=== PATIENT | female | born 1980 | race Caucasian/White ===

== ENCOUNTER 2021-08-01 22:24 | Observation (INO) | payer OTHER ==
[2021-08-01 22:42] VITALS: BMI 38.0
[2021-08-01] MEDS ORDERED: ACETAMINOPHEN 1000 MG/100 ML VIAL (NON FORMULARY) IVPB ONE (23:04)
[2021-08-01] MEDS ORDERED: SODIUM CHLORIDE 0.9% 500 ML INFUS.BAG IV ONE (23:04)
[2021-08-01] MEDS ORDERED: ACETAMINOPHEN INJECTION 100 ML IVPB ONE (23:29)
[2021-08-01 23:31] LABS: BASO % 0.8 % (0-2.0); EOS % 0.8 % (0-4.5); HEMATOCRIT 39.4 % (32.4-45.2); HEMOGLOBIN 13.1 GM/dL (10.7-15.3); MCH 26.8 pg (25.7-33.7); MCHC 33.1 g/dl (32.0-36.0); MEAN PLT VOLUME 8.4 fl (7.5-11.1); MONO % 6.1 % (3.8-10.2); NEUT % 67.3 % (42.8-82.8); PLATELET COUNT 269 10^3/uL (134-434); RBC 4.87 M/mm3 (3.60-5.2)
[2021-08-01 23:44] LABS: CHLORIDE 106 mmol/L (98-107); SODIUM 138 mmol/L (136-145)
[2021-08-01 23:45] LABS: CALCIUM 8.8 mg/dL (8.5-10.1)
[2021-08-01 23:46] LABS: ALBUMIN 3.9 g/dl (3.4-5.0); ANION GAP 10 MMOL/L (8-16); BLOOD UREA NITROGEN 9.6 mg/dL (7-18); CO2 22 mmol/L (21-32); GLUCOSE,RANDOM 125 mg/dL (74-106)
[2021-08-01 23:49] LABS: CREATININE 0.8 mg/dL (0.55-1.3); SGOT/AST 16 U/L (15-37); SGPT/ALT 27 U/L (13-61)
[2021-08-01 23:50] LABS: BILIRUBIN,TOTAL 0.3 mg/dL (0.2-1); TOT PROT 7.4 g/dl (6.4-8.2)
[2021-08-01 23:52] LABS: ALK PHOS 36 U/L (45-117)
[2021-08-02] MEDS ORDERED: ASPIRIN 81 MG CHEWABLE TABLETS PO ONE (00:12)
[2021-08-02] MEDS ORDERED: ASPIRIN 81 MG CHEWABLE TABLETS ONE ×2 (00:20→00:45)
[2021-08-02 07:16] LABS: BASO % 0.5 % (0-2.0); EOS % 0.4 % (0-4.5); HEMATOCRIT 38.4 % (32.4-45.2); HEMOGLOBIN 12.6 GM/dL (10.7-15.3); LYMPH % 29.1 % (8-40); MCHC 32.9 g/dl (32.0-36.0); MEAN CELL VOLUME 82.1 fl (80-96); MEAN PLT VOLUME 9.2 fl (7.5-11.1); MONO % 5.3 % (3.8-10.2); NEUT % 64.7 % (42.8-82.8); PLATELET COUNT 248 10^3/uL (134-434); RBC 4.68 M/mm3 (3.60-5.2); RDW 13.5 % (11.6-15.6); WHITE BLOOD COUNT 9.8 K/mm3 (4.0-10.0)
[2021-08-02 07:27] LABS: CHLORIDE 109 mmol/L (98-107); SODIUM 138 mmol/L (136-145)
[2021-08-02 07:30] LABS: CALCIUM 8.8 mg/dL (8.5-10.1)
[2021-08-02 07:31] LABS: ANION GAP 5 MMOL/L (8-16); CO2 24 mmol/L (21-32)
[2021-08-02 07:32] LABS: GLUCOSE,RANDOM 86 mg/dL (74-106)
[2021-08-02 07:34] LABS: CREATININE 0.7 mg/dL (0.55-1.3)
[2021-08-02 07:36] LABS: BLOOD UREA NITROGEN 8.8 mg/dL (7-18)
[2021-08-02 08:05] LABS: INR 0.95 (0.83-1.09); PROTHROMBIN TIME (PATIENT) 11.7 SEC (9.7-13.0)
[2021-08-02] MEDS ORDERED: amLODIPine BESYLATE 5 MG TABLET (FP) ONE (09:20)
[2021-08-02] MEDS ORDERED: amLODIPine BESYLATE 5 MG TABLET (FP) PO SCH (10:00)
[2021-08-02] MEDS ORDERED: VALSARTAN 160 MG TABLET PO SCH (10:00)
[2021-08-02] MEDS ORDERED: EZETIMIBE 10 MG TABLET (FP) PO SCH (10:00)
[2021-08-02 12:10] LABS: CHOLESTEROL 171 mg/dL (50-200); TRIGLYCERIDES 149 mg/dL (0-150)
[2021-08-02 12:11] LABS: LDL CHOLESTEROL (ONLY SJRH) 105 mg/dL (5-100)
[2021-08-02 12:13] LABS: HDL CHOLESTEROL 38 mg/dL (40-60)
[2021-08-02 16:19] VITALS: BP 140/96; PULSE 80; TEMP 98.7
[2021-08-02] MEDS ORDERED: ATORVASTATIN CA 40 MG TABLET (FP) PO SCH (22:00)
== END 2021-08-02 18:30 | disposition home or self-care (01) ==
LOC: JER 22:24 → JERBED 08-02 00:10
PROVIDERS: ADMIT Internal Medicine; ATTEND Family Medicine
PROC: 3E033NZ Introduction of Analgesics, Hypnotics, Sedatives into Peripheral Vein, Percutaneous Approach (ICD-10-PCS; principal; 2021-08-02)
PROC: 3E0337Z Introduction of Electrolytic and Water Balance Substance into Peripheral Vein, Percutaneous Approach (ICD-10-PCS; 2021-08-02)
DX: I10 Essential (primary) hypertension (principal); E78.5 Hyperlipidemia, unspecified; E66.8 Other obesity; Z68.38 Body mass index [BMI] 38.0-38.9, adult; Z87.891 Personal history of nicotine dependence; E78.00 Pure hypercholesterolemia, unspecified; R07.9 Chest pain, unspecified; R00.0 Tachycardia, unspecified; Z86.79 Personal history of other diseases of the circulatory system; Z86.39 Personal history of other endocrine, nutritional and metabolic disease; E11.9 Type 2 diabetes mellitus without complications
CPT/HCPCS: 36415; 71046-TC-FY; 80048; 80053; 80061; 82550; 83036; 83735; 84484; 84703; 85025; 85379; 85610; 85730; 93005; 93010; 93351; 96374; 99285-25; C9803; G0378; J0131; U0003; U0005